=== PATIENT | male | born 1990 | race African-American/Black ===

== ENCOUNTER 2024-10-22 13:15 | Emergency (ER) | payer MEDICAID ==
[~2024-10-22] VITALS: Ht 180.3 cm; Wt 90.7 kg
[2024-10-22 13:22] VITALS: TEMP 36.8; O2SAT 98
[2024-10-22] MEDS: ACETAMINOPHEN 325MG TABLET PO ONE (13:57)
[2024-10-22 14:15] VITALS: TEMP 97.8
[2024-10-22 15:33] VITALS: BP 125/71; PULSE 70; RESP 14; O2SAT 97
== END 2024-10-22 15:36 | disposition home or self-care (01) ==
LOC: ER 13:27
DX: S09.90XA Unspecified injury of head, initial encounter (principal); M79.641 Pain in right hand; V49.9XXA Car occupant (driver) (passenger) injured in unspecified traffic accident, initial encounter; Y93.89 Activity, other specified; Y92.410 Unspecified street and highway as the place of occurrence of the external cause; Y99.8 Other external cause status
CPT/HCPCS: 73130; 99284